=== PATIENT | male | born 1945 | race Caucasian/White ===

== ENCOUNTER 2023-08-20 18:58 | Inpatient (IN) | payer OTHER ==
[~2023-08-20] VITALS: Ht 182.9 cm; Wt 95.3 kg
[2023-08-20] MEDS: BLOOD GLUCOSE MONITORING 1 DEV DEV FS SCH (12:35)
[2023-08-20 19:04] VITALS: BP 104/62; PULSE 74; RESP 18; TEMP 101; O2SAT 95
[2023-08-20] MEDS ORDERED: ACETAMINOPHEN EXTRA STRENGTH 500 MG TAB PO ONE (19:35)
[2023-08-20] MEDS ORDERED: ACETAMINOPHEN 650 MG SUPP RC ONE (19:40)
[2023-08-20] MEDS ORDERED: DEXAMETHASONE 4 MG/ML VIAL IVP ONE (19:45)
[2023-08-20] MEDS ORDERED: NACL 0.9% 1,000 ML IV ONE ×2 (19:45→20:35)
[2023-08-20 20:18] LABS: HEMATOCRIT 30.4 % (36-52); HEMOGLOBIN 9.9 g/dL (12.0-18.0); MEAN CORPUSCULAR HEMOGLOBIN 31 pg (27-31); MEAN CORPUSCULAR HGB CONC 33 g/dL (33-37); MEAN CORPUSCULAR VOLUME 94.2 fL (80-94); PLATELET COUNT (AUTO) 101 K/uL (140-450); RED BLOOD CELL COUNT(AUTO) 3.23 MIL/uL (4.20-6.10); RED CELL DISTRIBUTION WIDTH 15.4 % (11.6-13.7)
[2023-08-20 20:20] LABS: WHITE BLOOD COUNT (AUTO) 45.2 K/uL (4.8-10.8)
[2023-08-20 20:26] LABS: INR 1.12 (0.8-1.2); PARTIAL THROMBOPLASTIN TIME 28.2 secs (22-35.6); PROTHROMBIN TIME 11.7 secs (10.8-13.4)
[2023-08-20] MEDS ORDERED: ALBUTEROL HFA MDI 90 MCG/ACTUATION 8 GM INH PRN ×2 (20:30→20:35)
[2023-08-20 20:32] LABS: ALANINE AMINOTRANSFERASE 14 U/L (12-78); ALBUMIN 2.8 g/dL (3.4-5.0); ALKALINE PHOSPHATASE 66 U/L (50-136); ANION GAP 13.1 (8-16); ASPARTATE AMINOTRANSFERASE 35 U/L (15-37); CALCIUM 7.8 mg/dL (8.5-10.1); CARBON DIOXIDE 23.5 mmol/L (21-32); CHLORIDE 106 mmol/L (98-107); CREATINE KINASE, TOTAL 643 U/L (39-308); CREATININE 1.4 mg/dL (0.6-1.3); GLUCOSE 239 mg/dL (74-106); POTASSIUM 3.6 mmol/L (3.5-5.1); SODIUM SERUM 139 mmol/L (136-145); TOTAL BILIRUBIN 0.4 mg/dL (0.0-1.0); TOTAL PROTEIN, SERUM 5.8 g/dL (6.4-8.2); UREA NITROGEN, BLOOD 9 mg/dL (7-18)
[2023-08-20] MEDS ORDERED: MELATONIN 3 MG TAB PO PRN (20:35)
[2023-08-20] MEDS ORDERED: PIPERACILLIN/TAZOBACTAM 3.375 GM in DEXTROSE 5% 50 ML IV ONE (20:35)
[2023-08-20] MEDS ORDERED: VANCOMYCIN 1,000 MG in DEXTROSE 5% 250 ML IV ONE (20:35)
[2023-08-20] MEDS ORDERED: ACETAMINOPHEN 325 MG TAB PO PRN (20:35)
[2023-08-20 20:40] LABS: LACTIC ACID 1.5 mmol/L (0.4-2.0)
[2023-08-20] MEDS ORDERED: ASPIRIN 325 MG TAB PO ONE (20:40)
[2023-08-20] MEDS ORDERED: DEXTROSE 50% 50 ML SYR IVP PRN (20:45)
[2023-08-20 20:48] LABS: LYMPHOCYTES % (MANUAL) 83 % (20-46)
[2023-08-20 20:49] LABS: HYPOCHROMASIA 1+; PLATELET ESTIMATE DECREASED
[2023-08-20 20:51] LABS: FLU A ANTIGEN negative (NEGATIVE); FLU B ANTIGEN NEGATIVE (NEGATIVE)
[2023-08-20] MEDS ORDERED: PIPERACILLIN/TAZOBACTAM 3.375 GM VIAL IV ONE (20:51)
[2023-08-20] MEDS ORDERED: VANCOMYCIN 1,000 MG VIAL ONE (20:51)
[2023-08-20 21:14] VITALS: PULSE 81; RESP 18; O2SAT 93; O2SAT 96
[2023-08-20 23:10] VITALS: PULSE 104; RESP 19; O2SAT 97
[2023-08-20 23:24] VITALS: PULSE 60
[2023-08-21] VITALS (9 sets, daily range): BP systolic 96–122; BP diastolic 56–69; PULSE 57–101; RESP 18–22; TEMP 96.7–98.6; O2SAT 94–100
[2023-08-21] MEDS ORDERED: QUET25TA46 PO (00:08)
[2023-08-21] MEDS ORDERED: ACAL100T PO (00:08)
[2023-08-21] MEDS ORDERED: [UNRECOGNIZED DRUG - CODE] PO (00:08)
[2023-08-21] MEDS ORDERED: MV-M1CAP18 PO (00:08)
[2023-08-21] MEDS ORDERED: DIVA500T37 PO (00:08)
[2023-08-21] MEDS ORDERED: BUSP-83 PO (00:08)
[2023-08-21] MEDS ORDERED: MELA5SGL PO (00:08)
[2023-08-21] MEDS: ASCORBIC ACID 500 MG TAB PO SCH ×4 (00:12→21:41)
[2023-08-21] MEDS: NACL 0.9% 1,000 ML IV SCH ×3 (00:12→16:50)
[2023-08-21] MEDS: APIXABAN 2.5 MG TAB PO SCH ×4 (00:14→22:51)
[2023-08-21] MEDS: INSULIN LISPRO SLIDING SCALE 100 UNITS/ML VIAL SUBQ PRN ×2 (00:37→17:20)
[2023-08-21] MEDS: BLOOD GLUCOSE MONITORING 1 DEV DEV FS SCH ×4 (06:51→21:00)
[2023-08-21 07:08] LABS: BASOPHILS # (AUTO) 0.1 K/uL (0.00-0.22); BASOPHILS % (AUTO) 0.1 % (0.0-2.0); EOSINOPHILS % (AUTO) 0.1 % (0.0-4.0); HEMATOCRIT 33.2 % (36-52); HEMOGLOBIN 10.7 g/dL (12.0-18.0); LYMPHOCYTES # (AUTO) 36.1 K/uL (2.0-11.5); LYMPHOCYTES % (AUTO) 86.2 % (20.5-51.1); MEAN CORPUSCULAR HEMOGLOBIN 31 pg (27-31); MEAN CORPUSCULAR HGB CONC 32 g/dL (33-37); MEAN CORPUSCULAR VOLUME 95.9 fL (80-94); MONOCYTES # (AUTO) 0.6 K/uL (0.8-1.0); MONOCYTES % (AUTO) 1.4 % (1.7-9.3); NEUTROPHILS # (AUTO) 5.1 K/uL (1.8-7.7); NEUTROPHILS % (AUTO) 12.2 % (42.2-75.2); PLATELET COUNT (AUTO) 92 K/uL (140-450); RED BLOOD CELL COUNT(AUTO) 3.46 MIL/uL (4.20-6.10); RED CELL DISTRIBUTION WIDTH 15.5 % (11.6-13.7)
[2023-08-21 07:21] LABS: ANION GAP 11.3 (8-16); CHLORIDE 108 mmol/L (98-107); CREATININE 1.2 mg/dL (0.6-1.3); GLUCOSE 148 mg/dL (74-106); POTASSIUM 4.3 mmol/L (3.5-5.1); SODIUM SERUM 143 mmol/L (136-145); UREA NITROGEN, BLOOD 23 mg/dL (7-18)
[2023-08-21] MEDS ORDERED: VANCOMYCIN PER PHARMACY MC PRN (08:05)
[2023-08-21 08:54] LABS: WHITE BLOOD COUNT (AUTO) 41.9 K/uL (4.8-10.8)
[2023-08-21] MEDS: CHOLECALCIFEROL 1,000 IU TAB PO SCH (09:50)
[2023-08-21] MEDS: ZINC SULF 220 MG CAP PO SCH (09:50)
[2023-08-21] MEDS: DEXAMETHASONE 4 MG/ML VIAL IVP SCH (09:51)
[2023-08-21] MEDS: guaiFENesin 600 MG TABER PO PRN ×2 (09:51→21:41)
[2023-08-21] MEDS ORDERED: QUEtiapine FUMARATE 25 MG TAB PO PRN (10:05)
[2023-08-21] MEDS: PIPERACILLIN/TAZOBACTAM 3.375 GM in DEXTROSE 5% 50 ML IV SCH ×2 (13:00→22:19)
[2023-08-21] MEDS: VANCOMYCIN 1,000 MG in DEXTROSE 5% 250 ML IV SCH (15:44)
[2023-08-21] MEDS ORDERED: METOPROLOL 25 MG TAB ONE (17:59)
[2023-08-21] MEDS ORDERED: METOPROLOL 25 MG TAB PO SCH (18:00)
[2023-08-21] MEDS: VALPROIC ACID 250 MG/5 ML UDC PO SCH (21:40)
[2023-08-21] MEDS: QUEtiapine FUMARATE 25 MG TAB PO SCH (21:41)
[2023-08-21] MEDS: METOPROLOL 25 MG TAB PO SCH (21:42)
[2023-08-22] VITALS (10 sets, daily range): BP systolic 116–142; BP diastolic 60–86; PULSE 63–115; RESP 18–22; TEMP 97.6–98.3; O2SAT 93–100
[2023-08-22] MEDS: PIPERACILLIN/TAZOBACTAM 3.375 GM in DEXTROSE 5% 50 ML IV SCH ×3 (06:47→20:52)
[2023-08-22] MEDS: NACL 0.9% 1,000 ML IV SCH (06:49)
[2023-08-22] MEDS: BLOOD GLUCOSE MONITORING 1 DEV DEV FS SCH ×4 (06:50→21:11)
[2023-08-22 08:53] LABS: BASOPHILS # (AUTO) 0.1 K/uL (0.00-0.22); BASOPHILS % (AUTO) 0.5 % (0.0-2.0); EOSINOPHILS # (AUTO) 0.1 K/uL (0-0.4); EOSINOPHILS % (AUTO) 0.5 % (0.0-4.0); HEMATOCRIT 29.8 % (36-52); HEMOGLOBIN 9.7 g/dL (12.0-18.0); LYMPHOCYTES # (AUTO) 16.5 K/uL (2.0-11.5); MEAN CORPUSCULAR HEMOGLOBIN 30 pg (27-31); MEAN CORPUSCULAR HGB CONC 33 g/dL (33-37); MEAN CORPUSCULAR VOLUME 93.5 fL (80-94); MONOCYTES # (AUTO) 0.4 K/uL (0.8-1.0); MONOCYTES % (AUTO) 1.7 % (1.7-9.3); NEUTROPHILS # (AUTO) 4.1 K/uL (1.8-7.7); NEUTROPHILS % (AUTO) 19.3 % (42.2-75.2); PLATELET COUNT (AUTO) 92 K/uL (140-450); RED BLOOD CELL COUNT(AUTO) 3.18 MIL/uL (4.20-6.10); RED CELL DISTRIBUTION WIDTH 15.4 % (11.6-13.7); WHITE BLOOD COUNT (AUTO) 21.2 K/uL (4.8-10.8)
[2023-08-22] MEDS: VANCOMYCIN 1,000 MG in DEXTROSE 5% 250 ML IV SCH ×2 (09:00→11:03)
[2023-08-22] MEDS ORDERED: ENOXAPARIN 40 MG/0.4 ML SYR SUBQ SCH (09:00)
[2023-08-22 09:04] LABS: ANION GAP 13.2 (8-16); CALCIUM 7.9 mg/dL (8.5-10.1); CARBON DIOXIDE 23.4 mmol/L (21-32); CHLORIDE 107 mmol/L (98-107); CREATININE 0.9 mg/dL (0.6-1.3); GLUCOSE 99 mg/dL (74-106); POTASSIUM 3.6 mmol/L (3.5-5.1); SODIUM SERUM 140 mmol/L (136-145); UREA NITROGEN, BLOOD 15 mg/dL (7-18)
[2023-08-22] MEDS ORDERED: ALBUTEROL 0.083% 2.5 MG/3 ML NEBU INH PRN (09:05)
[2023-08-22] MEDS: DEXAMETHASONE 4 MG/ML VIAL IVP SCH (09:35)
[2023-08-22] MEDS: PANTOPRAZOLE 40 MG INJ VIAL IVP SCH (09:35)
[2023-08-22] MEDS: METOPROLOL 25 MG TAB PO SCH ×2 (09:36→20:58)
[2023-08-22] MEDS: CHOLECALCIFEROL 1,000 IU TAB PO SCH (09:36)
[2023-08-22] MEDS: VALPROIC ACID 250 MG/5 ML UDC PO SCH ×2 (09:36→21:02)
[2023-08-22] MEDS: APIXABAN 2.5 MG TAB PO SCH ×2 (09:43→20:59)
[2023-08-22] MEDS: ASCORBIC ACID 500 MG TAB PO SCH ×2 (09:44→21:02)
[2023-08-22] MEDS: QUEtiapine FUMARATE 25 MG TAB PO SCH ×2 (09:44→20:58)
[2023-08-22] MEDS: ZINC SULF 220 MG CAP PO SCH (09:46)
[2023-08-22] MEDS: INSULIN LISPRO SLIDING SCALE 100 UNITS/ML VIAL SUBQ PRN (17:43)
[2023-08-23] VITALS (7 sets, daily range): BP systolic 100–130; BP diastolic 57–90; PULSE 50–98; RESP 16–19; TEMP 97.1–98.2; O2SAT 93–98
[2023-08-23] MEDS: PIPERACILLIN/TAZOBACTAM 3.375 GM in DEXTROSE 5% 50 ML IV SCH ×3 (04:10→20:40)
[2023-08-23] MEDS: VANCOMYCIN 1.25GM PREMIX 250 ML IV SCH (04:33)
[2023-08-23 06:47] LABS: BASOPHILS # (AUTO) 0.1 K/uL (0.00-0.22); BASOPHILS % (AUTO) 0.3 % (0.0-2.0); EOSINOPHILS # (AUTO) 0.3 K/uL (0-0.4); EOSINOPHILS % (AUTO) 0.8 % (0.0-4.0); HEMATOCRIT 31.1 % (36-52); HEMOGLOBIN 10.1 g/dL (12.0-18.0); LYMPHOCYTES # (AUTO) 25.2 K/uL (2.0-11.5); LYMPHOCYTES % (AUTO) 74.7 % (20.5-51.1); MEAN CORPUSCULAR HEMOGLOBIN 31 pg (27-31); MEAN CORPUSCULAR HGB CONC 33 g/dL (33-37); MEAN CORPUSCULAR VOLUME 94.6 fL (80-94); MONOCYTES # (AUTO) 1.6 K/uL (0.8-1.0); MONOCYTES % (AUTO) 4.7 % (1.7-9.3); NEUTROPHILS # (AUTO) 6.6 K/uL (1.8-7.7); NEUTROPHILS % (AUTO) 19.5 % (42.2-75.2); PLATELET COUNT (AUTO) 138 K/uL (140-450); RED BLOOD CELL COUNT(AUTO) 3.28 MIL/uL (4.20-6.10); RED CELL DISTRIBUTION WIDTH 15.4 % (11.6-13.7)
[2023-08-23 06:59] LABS: WHITE BLOOD COUNT (AUTO) 33.8 K/uL (4.8-10.8)
[2023-08-23] MEDS: BLOOD GLUCOSE MONITORING 1 DEV DEV FS SCH ×4 (07:30→21:16)
[2023-08-23] MEDS: CHOLECALCIFEROL 1,000 IU TAB PO SCH (09:08)
[2023-08-23] MEDS: guaiFENesin 600 MG TABER PO PRN ×3 (09:10→20:48)
[2023-08-23] MEDS: APIXABAN 2.5 MG TAB PO SCH ×2 (09:10→21:19)
[2023-08-23] MEDS: VALPROIC ACID 250 MG/5 ML UDC PO SCH ×2 (09:11→20:42)
[2023-08-23] MEDS: ZINC SULF 220 MG CAP PO SCH (09:11)
[2023-08-23] MEDS: ASCORBIC ACID 500 MG TAB PO SCH ×2 (09:11→20:46)
[2023-08-23] MEDS: METOPROLOL 25 MG TAB PO SCH ×2 (09:11→21:00)
[2023-08-23] MEDS: QUEtiapine FUMARATE 25 MG TAB PO SCH ×2 (09:12→20:44)
[2023-08-23] MEDS: DEXAMETHASONE 4 MG/ML VIAL IVP SCH (09:12)
[2023-08-23] MEDS: PANTOPRAZOLE 40 MG INJ VIAL IVP SCH (09:12)
[2023-08-23] MEDS ORDERED: APIX2.5 PO (12:02)
[2023-08-23] MEDS ORDERED: CHOL100030 PO (12:02)
[2023-08-23] MEDS ORDERED: METO25TA PO (12:02)
[2023-08-23] MEDS ORDERED: VITC500 PO (12:02)
[2023-08-23] MEDS ORDERED: ZINC100T8 PO (12:04)
[2023-08-23] MEDS ORDERED: PRED20TA5 PO (12:05)
[2023-08-23] MEDS: INSULIN LISPRO SLIDING SCALE 100 UNITS/ML VIAL SUBQ PRN ×2 (16:38→21:19)
[2023-08-24] VITALS (8 sets, daily range): BP systolic 103–141; BP diastolic 42–66; PULSE 48–92; RESP 16–20; TEMP 96.5–97.4; O2SAT 95–100
[2023-08-24] MEDS: PIPERACILLIN/TAZOBACTAM 3.375 GM in DEXTROSE 5% 50 ML IV SCH ×3 (04:49→21:16)
[2023-08-24] MEDS: VANCOMYCIN 1.25GM PREMIX 250 ML IV SCH (04:50)
[2023-08-24 06:50] LABS: HEMATOCRIT 33.7 % (36-52); HEMOGLOBIN 10.8 g/dL (12.0-18.0); MEAN CORPUSCULAR HEMOGLOBIN 30 pg (27-31); MEAN CORPUSCULAR HGB CONC 32 g/dL (33-37); MEAN CORPUSCULAR VOLUME 93.2 fL (80-94); PLATELET COUNT (AUTO) 190 K/uL (140-450); RED BLOOD CELL COUNT(AUTO) 3.61 MIL/uL (4.20-6.10); RED CELL DISTRIBUTION WIDTH 15.2 % (11.6-13.7)
[2023-08-24 06:52] LABS: WHITE BLOOD COUNT (AUTO) 57.6 K/uL (4.8-10.8)
[2023-08-24] MEDS: BLOOD GLUCOSE MONITORING 1 DEV DEV FS SCH ×4 (07:09→21:01)
[2023-08-24 07:24] LABS: ANION GAP 9.1 (8-16); CALCIUM 8.2 mg/dL (8.5-10.1); CARBON DIOXIDE 28.4 mmol/L (21-32); CHLORIDE 106 mmol/L (98-107); CREATININE 1.1 mg/dL (0.6-1.3); GLUCOSE 107 mg/dL (74-106); POTASSIUM 3.5 mmol/L (3.5-5.1); SODIUM SERUM 140 mmol/L (136-145); UREA NITROGEN, BLOOD 12 mg/dL (7-18)
[2023-08-24 08:21] LABS: BASOPHILS % (MANUAL) 0 % (0-2); EOSINOPHILS % (MANUAL) 0 % (0-4); LYMPHOCYTES % (MANUAL) 44 % (20-46); MONOCYTES % (MANUAL) 5 % (5-12)
[2023-08-24 08:24] LABS: PLATELET ESTIMATE ADEQUATE
[2023-08-24 09:57] LABS: BLASTS, MANUAL % 29 % (0-0)
[2023-08-24] MEDS: guaiFENesin 600 MG TABER PO PRN ×2 (10:03→21:09)
[2023-08-24] MEDS: APIXABAN 2.5 MG TAB PO SCH ×2 (10:03→21:10)
[2023-08-24] MEDS: ZINC SULF 220 MG CAP PO SCH (10:04)
[2023-08-24] MEDS: CHOLECALCIFEROL 1,000 IU TAB PO SCH (10:04)
[2023-08-24] MEDS: METOPROLOL 25 MG TAB PO SCH ×2 (10:04→21:09)
[2023-08-24] MEDS: QUEtiapine FUMARATE 25 MG TAB PO SCH ×2 (10:04→21:09)
[2023-08-24] MEDS: ASCORBIC ACID 500 MG TAB PO SCH ×2 (10:04→21:08)
[2023-08-24] MEDS: PANTOPRAZOLE 40 MG INJ VIAL IVP SCH (10:05)
[2023-08-24] MEDS: DEXAMETHASONE 4 MG/ML VIAL IVP SCH (10:05)
[2023-08-24] MEDS: VALPROIC ACID 250 MG/5 ML UDC PO SCH ×2 (10:05→21:08)
[2023-08-24] MEDS: INSULIN LISPRO SLIDING SCALE 100 UNITS/ML VIAL SUBQ PRN ×2 (16:04→21:43)
[2023-08-25] VITALS: BP 140/47; PULSE 47; PULSE 51; RESP 18; TEMP 96.3; O2SAT 96
[2023-08-25 04:00] VITALS: BP 143/54; PULSE 48; PULSE 50; RESP 18; TEMP 96.5; O2SAT 95
[2023-08-25] MEDS: PIPERACILLIN/TAZOBACTAM 3.375 GM in DEXTROSE 5% 50 ML IV SCH ×2 (05:00→13:00)
[2023-08-25] MEDS: VANCOMYCIN 1.25GM PREMIX 250 ML IV SCH (05:00)
[2023-08-25 07:10] VITALS: O2SAT 96
[2023-08-25 07:16] LABS: BASOPHILS # (AUTO) 0.9 K/uL (0.00-0.22); BASOPHILS % (AUTO) 1.1 % (0.0-2.0); EOSINOPHILS # (AUTO) 0.3 K/uL (0-0.4); EOSINOPHILS % (AUTO) 0.3 % (0.0-4.0); HEMOGLOBIN 10.9 g/dL (12.0-18.0); LYMPHOCYTES # (AUTO) 67.8 K/uL (2.0-11.5); MEAN CORPUSCULAR HEMOGLOBIN 30 pg (27-31); MEAN CORPUSCULAR HGB CONC 32 g/dL (33-37); MEAN CORPUSCULAR VOLUME 94.2 fL (80-94); MONOCYTES # (AUTO) 0.8 K/uL (0.8-1.0); NEUTROPHILS # (AUTO) 12.9 K/uL (1.8-7.7); NEUTROPHILS % (AUTO) 15.6 % (42.2-75.2); PLATELET COUNT (AUTO) 232 K/uL (140-450); RED BLOOD CELL COUNT(AUTO) 3.61 MIL/uL (4.20-6.10); RED CELL DISTRIBUTION WIDTH 15.1 % (11.6-13.7)
[2023-08-25] MEDS: BLOOD GLUCOSE MONITORING 1 DEV DEV FS SCH ×3 (07:16→17:10)
[2023-08-25 07:36] LABS: WHITE BLOOD COUNT (AUTO) 82.6 K/uL (4.8-10.8)
[2023-08-25 08:00] VITALS: BP 142/65; PULSE 53; PULSE 55; PULSE 58; RESP 18; TEMP 97; O2SAT 96
[2023-08-25] MEDS ORDERED: ACALABRUTINIB MALEATE 100 MG PO SCH (09:00)
[2023-08-25] MEDS: METOPROLOL 25 MG TAB PO SCH (09:00)
[2023-08-25] MEDS: PANTOPRAZOLE 40 MG INJ VIAL IVP SCH (09:00)
[2023-08-25] MEDS: DEXAMETHASONE 4 MG/ML VIAL IVP SCH (09:00)
[2023-08-25] MEDS: ASCORBIC ACID 500 MG TAB PO SCH (10:05)
[2023-08-25] MEDS: ZINC SULF 220 MG CAP PO SCH (10:05)
[2023-08-25] MEDS: VALPROIC ACID 250 MG/5 ML UDC PO SCH (10:05)
[2023-08-25] MEDS: CHOLECALCIFEROL 1,000 IU TAB PO SCH (10:06)
[2023-08-25] MEDS: guaiFENesin 600 MG TABER PO PRN (10:06)
[2023-08-25] MEDS: QUEtiapine FUMARATE 25 MG TAB PO SCH (10:06)
[2023-08-25] MEDS: APIXABAN 2.5 MG TAB PO SCH (10:14)
[2023-08-25 12:00] VITALS: BP 151/54; PULSE 54; PULSE 59; RESP 18; TEMP 98.4; O2SAT 96
[2023-08-25 16:00] VITALS: BP 126/59; PULSE 56; PULSE 58; RESP 18; TEMP 98.3; O2SAT 96
== END 2023-08-25 18:25 | disposition short-term general hospital (02) | DRG 871 ==
LOC: MED 18:58 → MTU 20:44
PROVIDERS: ADMIT Family Medicine; ATTEND Family Medicine
DX: A41.89 Other specified sepsis (principal); I21.A1 Myocardial infarction type 2; J12.82 Pneumonia due to coronavirus disease 2019; U07.1 COVID-19; J69.0 Pneumonitis due to inhalation of food and vomit; C91.10 Chronic lymphocytic leukemia of B-cell type not having achieved remission; G20.A1 Parkinson's disease without dyskinesia, without mention of fluctuations; D64.9 Anemia, unspecified; F02.80 Dementia in other diseases classified elsewhere, unspecified severity, without behavioral disturbance, psychotic disturbance, mood disturbance, and anxiety; D69.6 Thrombocytopenia, unspecified; I48.91 Unspecified atrial fibrillation; F32.9 Major depressive disorder, single episode, unspecified; E78.5 Hyperlipidemia, unspecified; F43.10 Post-traumatic stress disorder, unspecified; Z66 Do not resuscitate; Z79.01 Long term (current) use of anticoagulants; Z79.899 Other long term (current) drug therapy
CPT/HCPCS: 36415; 71045; 72170; 73080; 80048; 80053; 80202; 82550; 82553; 82948; 83605; 83880; 84484; 85025; 85384; 85610; 85730; 87040; 87081; 87086; 93005; 96365; 96368; 96375; 97112; 97163-GP; 99285; C9113; J1100; J1815; J2543; J3370; J3372; J3535; J7060; Q0092